=== PATIENT | male | born 1955 | race Caucasian/White ===

== ENCOUNTER → 2018-09-15 | Outpatient (CLI) | payer MEDICARE ==
--- NOTE | 2018-09-15 13:36 | XR ---
EXAM TYPE: LUMBAR SPINE X RAY SERIES COMPARISON: NONE HISTORY: Pain TECHNIQUE: 4 views are submitted. FINDINGS: Hypertrophic and degenerative change of the spine with facet arthropathy. No compression deformities. Alignment is anatomic. Pedicles intact. IMPRESSION: 1. Multilevel hypertrophic and degenerative change.
--- NOTE | 2018-09-15 13:38 | XR ---
EXAMINATION TYPE: XR Hip Bilateral and AP pelvis DATE OF EXAM: 09/15/2018 COMPARISON: NONE HISTORY: Pain TECHNIQUE: A single AP view of the pelvis is obtained. Two views of the bilateral hip are obtained. FINDINGS: There is arthropathy of the hip joint. Soft tissue ossification adjacent to the greater trochanter of the left hip. There is no erosive changes. SI joints are symmetric. No acute fracture. Calcification s in the pelvis appear vascular. Spurring along the greater trochanter of the right hip also noted. IMPRESSION: 1. Bilateral hip arthropathy correlate for femoral acetabular impingement. 2. Bilateral small spurs seen along the upper margin of the greater trochanter which can sometimes be associated with trochanteric bursitis.
== END | disposition home or self-care (01) ==
LOC: RADXRMAIN 12:53
PROVIDERS: ATTEND Family Medicine
DX: M47.816 Spondylosis without myelopathy or radiculopathy, lumbar region (principal); M12.852 Other specific arthropathies, not elsewhere classified, left hip; M12.851 Other specific arthropathies, not elsewhere classified, right hip; M76.9 Unspecified enthesopathy, lower limb, excluding foot
CPT/HCPCS: 72100; 73521

== ENCOUNTER → 2018-11-11 | Outpatient (CLI) | payer MEDICARE ==
[2018-11-09 14:55] VITALS: BMI 25.0
[2018-11-11 13:21] VITALS: BP 163/81; PULSE 58; RESP 16
--- NOTE | 2018-11-11 15:27 | P.PAINCN ---
History of Present Illness - Reason for Consult Consult date: 11/11/18 - History of Present Illness this is the initial consultation visit for this 63 years old male, with a chronic history of severe low back pain, pain started 2 years ago, without any significant initiating event, she reported that he used to work grocery store, and he used to do a lot of physical activity and heavy lifting, he reported that in intensity of the pain increased over the last 2 years and currently is complaining of severe low back pain ,not radiated to the lower extremity, he had no numbness or tingling sensation in the lower extremity, he denies any motor or sensory deficit he denies any change in the bowel movement or urination, he never had any surgical intervention, he did not have interventional pain management ,no physical therapy done previously, also patient complaining of some pain in the left groin area which is started after left inguinal hernia surgery, the pain is constant and increased with any activity radiated to the left groin area. Past Medical History Past Medical History: Cancer Additional Past Medical History / Comment(s): melanoma, diverticulosis, 3 lower vertebrae degenerative disc disease History of Any Multi-Drug Resistant Organisms: None Reported Past Surgical History: Hernia Repair Additional Past Surgical History / Comment(s): lt inguinal hernia repair x2, lymph node lt, bowel obstruction surgery, melanoma removed Past Anesthesia/Blood Transfusion Reactions: Motion Sickness Past Psychological History: No Psychological Hx Reported Smoking Status: Never smoker Past Alcohol Use History: Occasional Past Drug Use History: None Reported - Past Family History Father Family Medical History: Cancer Brother(s) Family Medical History: Cancer Additional Family Medical History / Comment(s): larynx Sister(s) Family Medical History: Cancer Additional Family Medical History / Comment(s): breast Medications and Allergies Home Medications Medication Instructions Recorded Confirmed Type Multivitamins, Thera [Multivitamin 1 tab PO DAILY 11/09/18 11/11/18 History (formulary)] Zinc 50 mg PO DAILY 11/09/18 11/11/18 History Allergies Allergy/AdvReac Type Severity Reaction Status Date / Time No Known Allergies Allergy Verified 11/11/18 12:54 Physical Exam Vitals: Vital Signs Pulse Resp BP 11/11/18 13:00 58 L 16 163/81 Social history : not smoker , NO ETOH , NO Illegal drugs use . Review of Systems : - Constitutional : no chills , no fever , no night sweats , - Ears : no ear discharge , no change in hearing -Nose, Mouth ,Throat ; no bleeding gums, no sore throat , no epistaxis , -Cardiovascular : Denies chest pain, , no orthopnea , no palpitation -Respiratory : Denies cough , no dyspnea , no hemoptysis -Gastrointestinal :, no change in bowel habits , no coffee- ground emesis . -Genitourinary : No hematuria , no discharge , no in continence, -Musculoskeletal : No gait dysfunction , report low back pain , - Neurological : no ataxia , no tremor , no sezure , -Psychatric , no suicidal ideation no hallucination - Endocrine : no cold intolerence , no polyuria , no polydypsia , -Hematologic : no easy bleeding , no easy brusing , -Allergic / immunology : no angioedema , no wheezing ,no allergic rhinitis -Integumentary : no brttle nails , no change hair / nails , no foot/leg ulcers . Physical Examinations : -Constitutional : Cooperative , not in acute distress . -HEENT : nech ; supple , no Lymphadenopathy , no Thyromegaly , :eyes , no icterus, no photophobia . ENT : , normal oropharynx , no Thrush - Respiratory : Chest clear to auscultations Bilaterally , no wheezing . - Cardiovascular : regular rate and rhythem , S1 , S2 , no S3 , no S4. - Gastrointestinal: abdomen soft , tenderness over the left inguinal area , no organomegally . - Genitourinary : Defferred . -Integumentary : No cellulitis , no ulcers , normal skin turgor , no cyanotic . - neurologic : Cranial nerve II to XII intact , no focal neurological deffecit -psychatric : alert , oriented X 3 , appropriate affect , intact judgment and insight . -Lymphatic : no Lymphadenopathy. - musculoskeltal: normal gait Lumber spine moter stegnth lower extremities ,thigh and legs 5/5 Right side , 5/5 Left side deep tendon reflexes : normal Knee Jerk , normal ankle Jerk positive lumber facet Loading Test Range of motion of the lumbar spine Flexion 60 degrees, extension 10 degrees strait leg raising test , positive left side at 60-70 degree , negative on the right side Fabere test negative bilaterally No tenderness over the sacroiliac joint on the right side, and on the left side Gaenslen test= negative bilaterally Seated flexion test= negative bilaterally Results Comments: MRI of the lumbar spine multilevel lumbar disc protrusion and multilevel lumbar facet degeneration ,and left neuroforaminal narrowing at L4 5 Assessment and Plan Plan: Assessment and plan= lumbar degenerative disc disease lumbar facet degeneration Left ilioinguinal neuralgia Currently most of the pain is coming from the facetogenic component, he will be noted candidate to have diagnostic medial branch block lumbar area at L3 4, L4 5, L5-S1 x2 lifts possibly proceed with the radiofrequency ablation, The refinish the treatment for her low back area we can target the left ilioinguinal neuralgia by doing the left ilioinguinal nerve block Time with Patient: Greater than 30 PQRS Measure Charge Sheet Measure #130: Documentation of Current Meds in Medical Chart: Patient's medications documented in chart Measure #226: Tobacco Use: Screen & Cessation Intervention: Pt not a tobacco user Measure #111: Pneumonia Vaccination: Pneumococcal vaccine NOT administered or previously given Measure #47: Advance Care Plan: Advance care planning discussed & documented, pt chose/unable to give Measure #412: Opioid Treatment Agreement: No documentation of signed opioid treatment agreement Measure #408: Opioid Therapy Follow-up Evaluation: Patient had NO f/u eval minimum every 3 months during opioid therapy Measure #317: Preventitive Care & Scrn High Bld Press & F/U: Pre-hypertensive or hypertensive BP documented, pt will f/u with PCP Measure #128: Body Mass Index (BMI) Screening & Follow-up: BMI documented ABOVE normal parameters - f/u documented Measure #131: Pain Assessment & Follow-up: Pain positive & plan documented, Follow-up scheduled Measure #431: Unhealthy Alcohol Use Preventative Care & Scrn: Patient not identified as an unhealthy alcohol user PQRS Narrative: Smoking Status Never smoker Do You Want the Pneumonia No Vaccine AT THIS TIME? Blood Pressure 163/81 Pain Intensity [Left Groin] 2 Pain Intensity [Bilateral 0 Lower Back] Scale Used Numeric (1 - 10) Hx Alcohol Use (MH) Yes: social Home Medications: Ambulatory Orders Multivitamins, Thera [Multivitamin (formulary)] 1 tab PO DAILY 11/09/18 Zinc 50 mg PO DAILY 11/09/18
== END ==
LOC: PNWHC3 12:27
PROVIDERS: ATTEND Specialist
DX: M51.36 Other intervertebral disc degeneration, lumbar region (principal); M46.96 Unspecified inflammatory spondylopathy, lumbar region; G58.8 Other specified mononeuropathies; Z79.899 Other long term (current) drug therapy
CPT/HCPCS: 99211

== ENCOUNTER → 2023-07-21 | Outpatient (CLI) | payer MEDICARE ==
--- NOTE | 2023-07-21 13:31 | US ---
EXAMINATION TYPE: US venous doppler duplex LE LT DATE OF EXAM: 07/21/2023 1:12 PM COMPARISON: NONE CLINICAL INDICATION: Male, 68 years old with history of M79.89 SWELLING LEFT LEG; left proximal poste rior calf pain since last thursday SIDE PERFORMED: Left TECHNIQUE: The lower extremity deep venous system is examined utilizing real time linear array sonog twan with graded compression, doppler sonography and color-flow sonography. VESSELS IMAGED: Common Femoral Vein Deep Femoral Vein Greater Saphenous Vein * Femoral Vein Popliteal Vein Small Saphenous Vein * Proximal Calf Veins (* superficial vessels) Left Leg: Positive for DVT thrombosis of the left popliteal vein without color Doppler flow or compr essibility. Patent duplicated popliteal vein noted. Findings communicated to office by entertainment usher. IMPRESSION: Positive deep vein to most in the left popliteal vein.
== END | disposition home or self-care (01) ==
LOC: RADUSWWP 12:38
PROVIDERS: ATTEND Family Medicine
DX: I82.432 Acute embolism and thrombosis of left popliteal vein (principal)